=== PATIENT | male | born 1940 | race Caucasian/White ===

== ENCOUNTER 2021-12-29 06:51 | Observation (INO) ==
--- NOTE | 2021-12-29 08:35 | History & Physical Bridge Note ---
Date of Service December 29, 2021 History & Physical Bridge Note I have examined the patient, reviewed the History & Physical and in the interval since the performance of the History & Physical I have noted the following changes of clinical significance: no changes noted
[2021-12-29] MEDS ORDERED: fentaNYL citrate 100 MCG/2 ML VIAL ONE (08:36)
[2021-12-29] MEDS ORDERED: niCARdipine HCL INJ 2.5 MG/ML 10 ML AMP ONE (08:36)
[2021-12-29] MEDS ORDERED: HEPARIN (PORCINE) 1000 UNIT/ML 10 ML (CATH LAB USE ONLY) ONE (08:36)
[2021-12-29] MEDS ORDERED: NITROGLYCERIN/D5W 100MCG/ML 20ML SYR ONE (08:36)
[2021-12-29] MEDS ORDERED: MIDAZOLAM HCL 1 MG/ML 2ML VIAL ONE (08:36)
--- NOTE | 2021-12-29 08:37 | Pre Anesthesia Assessment ---
Date of Service December 29, 2021 Pre Sedation Assessment Vital Signs Temp Pulse Pulse Pulse Resp BP BP 12/30/21 02:39 36.6 C 63 18 117/68 12/29/21 23:00 36.7 C 65 20 118/69 12/29/21 22:30 58 L 12/29/21 20:31 36.8 C 61 18 147/79 H 12/29/21 14:00 36.9 C 65 18 143/82 H 12/29/21 12:30 62 16 135/74 12/29/21 12:15 69 16 131/71 12/29/21 12:00 64 16 160/74 H 12/29/21 11:45 65 16 136/94 12/29/21 11:30 67 16 140/61 12/29/21 11:15 64 16 150/69 H 12/29/21 11:00 69 16 144/72 H 12/29/21 10:45 65 16 122/61 12/29/21 10:30 72 16 130/72 12/29/21 10:15 72 16 130/79 12/29/21 10:00 65 16 140/70 12/29/21 09:45 62 16 123/72 12/29/21 09:35 67 16 144/76 H Pulse Ox 12/30/21 02:39 95 12/29/21 23:00 97 12/29/21 22:30 12/29/21 20:31 96 12/29/21 14:00 97 12/29/21 12:30 97 12/29/21 12:15 97 12/29/21 12:00 97 12/29/21 11:45 97 12/29/21 11:30 97 12/29/21 11:15 97 12/29/21 11:00 97 12/29/21 10:45 97 12/29/21 10:30 97 12/29/21 10:15 97 12/29/21 10:00 97 12/29/21 09:45 97 12/29/21 09:35 95 Cardiovascular + regular rate and + regular rhythm + S1 normal, + S2 normal and + murmur (2/6 GUSTABO) + femoral pulses present and + radial pulses present; no JVD no edema Respiratory no respiratory distress and no labored breathing + clear to auscultation bilaterally; no crackles, no rales, no rhonchi and no wheezes Pre-Sedation Airway Assessment Smoking Status: Current every day smoker Hx Sleep Apnea: No Short, Thick Neck: No Thyromental Distance: > or= 3.5 Finger Breadths Oral Cavity: + WNL Mallampati Class: III ASA: ASA4 NPO Status Date of Last Intake of Fluids: 12/29/21 Time of Last Intake of Fluids: 06:00 Last Oral Intake of Fluids Comment: sip with meds Date of Last Intake of Solid Food: 12/28/21 Procedure Planning Contraindications for Sedation: none Current Medications Reviewed: Yes Notes The planned sedation has been discussed with the patient. Informed Consent was obtained. I have identified the patient, determined the appropriateness of sedation and have assessed the patient immediately prior to the procedure. All medicine(s) and interventions are by my order.
--- NOTE | 2021-12-29 09:41 | Post Anesthesia Assessment ---
Date of Service December 29, 2021 Post Sedation Assessment Vital Signs Temp Pulse Pulse Pulse Resp BP BP 12/30/21 02:39 36.6 C 63 18 117/68 12/29/21 23:00 36.7 C 65 20 118/69 12/29/21 22:30 58 L 12/29/21 20:31 36.8 C 61 18 147/79 H 12/29/21 14:00 36.9 C 65 18 143/82 H 12/29/21 12:30 62 16 135/74 12/29/21 12:15 69 16 131/71 12/29/21 12:00 64 16 160/74 H 12/29/21 11:45 65 16 136/94 12/29/21 11:30 67 16 140/61 12/29/21 11:15 64 16 150/69 H 12/29/21 11:00 69 16 144/72 H 12/29/21 10:45 65 16 122/61 12/29/21 10:30 72 16 130/72 12/29/21 10:15 72 16 130/79 12/29/21 10:00 65 16 140/70 12/29/21 09:45 62 16 123/72 12/29/21 09:35 67 16 144/76 H Pulse Ox 12/30/21 02:39 95 12/29/21 23:00 97 12/29/21 22:30 12/29/21 20:31 96 12/29/21 14:00 97 12/29/21 12:30 97 12/29/21 12:15 97 12/29/21 12:00 97 12/29/21 11:45 97 12/29/21 11:30 97 12/29/21 11:15 97 12/29/21 11:00 97 12/29/21 10:45 97 12/29/21 10:30 97 12/29/21 10:15 97 12/29/21 10:00 97 12/29/21 09:45 97 12/29/21 09:35 95 Recovery Score Activity: Moves 4 extremities Respiration: Deep Breath/Cough Circulation: +/-20% PreAnes Value Consciousness: Fully Awake Oxygen Saturation: > 92% On Room Air Post Anesthesia Score: 10 Discharge Sedation Level of Care: Phase I Post Sedation Plan On clinical assessment, the patient appears to have tolerated the sedation without complications. Patient is recovering as anticipated. Patient will continue to be monitored by nursing and may be discharged when sedation discharge criteria are met per below protocol. Upon Completions of procedure up to 15 minutes continue every 5 minute vital signs and the P.A.R. score; then discharge to a Phase I or Fast Track to Phase II per the following guidelines: * Discharge Patient to appropriate Phase II area if PAR is 8 or greater or return to pre- procedure baseline. The post - procedure orders will be as directed. * If PAR score is less than 8 or not return to pre-procedure baseline then patie nt will follow Phase I monitoring till PAR is reached for Phase II. The Phase I may be done in procedure room or may call to secure a Phase I area. * If naloxone or flumazenil are used for reversal, hold in Phase I for continued monitoring from when last reversal dose was given for a minimum of 60 minutes or longer pending the nurse and/or physician discretion of patient condition before discharge to Phase II. Please call the Sedation Physician to re-evaluate and complete post-note for discharge to Phase II area. Do NOT discharge from procedure sedation or Phase 1 until post- sedation ev aluation note is complete by procedure /sedation MD Sedation Discharge Instructions to be given to the patient at discharge to home.
--- NOTE | 2021-12-29 09:45 | Cardiac Catheterization ---
Cardiac Cath Procedure Full Procedure Date December 29, 2021 Pre-Procedure Diagnosis Pre-Procedure Diagnosis: Angina, Positive Stress Test (nuclear stress demonstrating inferior ischemia) and Valvular Disease (moderate aortic stenosis) AUC Score AUC Score: 7 Post-Procedure Diagnosis Post-Procedure Diagnosis: Severe CAD Procedure(s) Performed Procedure(s) Performed: Coronary Angiography Family Independence Case Manager Mk Saul DO Pl[employer] Designer(s) [employer] Estimated Blood Loss Estimated Blood Loss: 4cc Medication(s) Medication(s): Fentanyl, Heparin, Lidocaine 1%, Nicardipine, Nitroglycerin and Versed Summary of Findings Left Main: Severe distal calcification with severe stenosis, 90% LAD: Severe calcification with 90% ostial stenosis Lcx: 80% ostial stenosis associated with severe distal left main calcification. Ramus: 90% ostial stenosis associated with distal left main calcification. RCA: 80% proximal RCA Hemodynamics Rest Ao:: 122/66/91 Final Ao: 127/67/83 LV: N/A Recommendations Recommendations: CABG and Valve Replacement Specimens Specimens: None Radiation Exposure (mGy) 636 Contrast (mls) 40 Fluids (cc crystalloids) Fluids (cc crystalloids): 70 Drains Drains: N/A Anesthesia Moderate sedation. Start 0913. End 09. Sedation monitor Karuna TOWNSEND. Procedural Complication(s) None Disposition Glass Cleaning Machine Tender Holding/Recovery I attest to the content of the Intraoperative Record and any orders documented therein. Any exceptions are noted below. [facility] Data: Glass Cleaning Machine Tender Cardiac Status Clinical evaluation leading to the procedure 81-year-old patient evaluated in hospital due to near syncope and mildly elevated troponin. ECG demonstrating anterior T wave inversions. Subsequent Lexiscan nuclear stress test demonstrating inferior ischemia. CAD Presenation: Positive Stress Test Anginal Classification: CCS II Heart Failure: No Imaging Studies Past 6 Months: Yes Stress Studies Past 6 Months: Yes Stress Testing w/SPECT MPI: Yes - Positive and Risk/Extent of Ischemia (High) Coronary Anatomy Dominant: Right Left Main (% Stenosis): Distal (90% severe calcification) LAD (% Stenosis): Ostial (90%), Proximal (30%), Mid (20-30% diffuse) and Distal (30%) D1 (% Stenosis): Ostial (50% 'napkin ring') Circumflex (% Stenosis): Ostial (80%) and Mid (30%) OM1 (% Stenosis): Ostial (50%) OM2 (% Stenosis): Mid (10-20% diffuse) RCA (% Stenosis): Proximal (80%), Mid (20-30% diffuse) and Distal (30%) R PDA (% Stenosis): Ostial (20% taper) Ramus (% Stenosis): Ostial (90%) Diagnostic Physicians Name: Mk Saul DO Closure Device Percutaneous Entry Location: Radial Closure Device: Radial Band Recommendations: CABG and Valve Replacement Intraprocedure Events Significant Disection: No Perforation: No
[2021-12-29] MEDS ORDERED: ATORVASTATIN 40 MG TAB PO SCH (21:00)
[2021-12-29] MEDS ORDERED: TERAZOSIN HCL 5 MG CAP PO SCH (21:00)
[2021-12-30] MEDS ORDERED: ASPIRIN 81 MG CHEW PO SCH (09:00)
[2021-12-30] MEDS ORDERED: FINASTERIDE 5 MG TAB PO SCH (09:00)
[2021-12-30] MEDS ORDERED: FLUTICASONE PROPIONATE NA SPR 16 GM BTL SCH (09:00)
== END 2021-12-30 07:30 | disposition short-term general hospital (02) ==
LOC: 2S 06:51 → CC 06:51
PROC: CLB.CCO (2021-12-29 08:00)